=== PATIENT | male | born 1935 | race Two or more races ===

== ENCOUNTER → 2022-03-04 | Outpatient (CLI) | payer MEDICARE, OTHER | END | disposition home or self-care (01) | LOC: Rad HDHVI 15:07 | PROVIDERS: ATTEND Internal Medicine Cardiovascular Disease | DX: R06.02 Shortness of breath (principal) | CPT/HCPCS: 93306 ==

== ENCOUNTER → 2022-03-09 | Outpatient (CLI) | payer MEDICARE, OTHER | END | disposition home or self-care (01) | LOC: Rad HDHVI 13:44 | PROVIDERS: ATTEND Internal Medicine Cardiovascular Disease | DX: I65.23 Occlusion and stenosis of bilateral carotid arteries (principal); I10 Essential (primary) hypertension | CPT/HCPCS: 93880 ==

== ENCOUNTER → 2022-03-13 | Outpatient (CLI) | payer MEDICARE, OTHER ==
[~2022-03-13] VITALS: Ht 177.8 cm; Wt 81.6 kg
[~2022-03-13] MED LIST: ADENOSINE 69 MG in GIVE UN-DILUTED 0 ML IV ONE; ADENOSINE 90 MG/30 ML INJ IV ONE
== END | disposition home or self-care (01) ==
LOC: Rad HDHVI 09:40
PROVIDERS: ATTEND Internal Medicine Cardiovascular Disease
DX: I10 Essential (primary) hypertension (principal); R06.02 Shortness of breath
CPT/HCPCS: 78452; 93005; 96374; 96375; A9500; J0153

== ENCOUNTER → 2023-04-07 | Outpatient (CLI) | payer MEDICARE, OTHER | END | disposition home or self-care (01) | LOC: Rad HDHVI 15:10 | PROVIDERS: ATTEND Internal Medicine Cardiovascular Disease | DX: I65.23 Occlusion and stenosis of bilateral carotid arteries (principal); I11.0 Hypertensive heart disease with heart failure; I50.23 Acute on chronic systolic (congestive) heart failure | CPT/HCPCS: 93880 ==

== ENCOUNTER → 2023-04-27 | Outpatient (CLI) | payer MEDICARE, OTHER ==
[~2023-04-27] VITALS: Ht 175.3 cm; Wt 92.5 kg
[~2023-04-27] MED LIST changes: -ADENOSINE 69 MG in GIVE UN-DILUTED 0 ML IV ONE; +ADENOSINE 78 MG in GIVE UN-DILUTED 0 ML IV ONE
== END | disposition home or self-care (01) ==
LOC: Rad HDHVI 12:53
PROVIDERS: ATTEND Internal Medicine Cardiovascular Disease
DX: I11.0 Hypertensive heart disease with heart failure (principal); I50.23 Acute on chronic systolic (congestive) heart failure; R06.02 Shortness of breath; E78.00 Pure hypercholesterolemia, unspecified; I95.9 Hypotension, unspecified
CPT/HCPCS: 78452; 93005; 96374; 96375; A9500; J0153

== ENCOUNTER → 2024-08-03 | Outpatient (CLI) | payer MEDICARE ==
--- NOTE | 2024-08-03 16:27 | DVH ---
EXAM: CT HEAD WITHOUT CONTRAST HISTORY: ALOC HEADACHES COMPARISON: None TECHNIQUE: Axial images of the head were obtained and reformatted in coronal and sagittal planes. All CT scans at this medical facility are performed using dose modulation techniques as appropriate t o a performed exam including the following: Automated exposure control was utilized; adjustment of th e MA and/or KV according to patient size; and use of iterative reconstruction technique. CT Dose: CTDI volume is 50.22 mGy. Dose-length product is 903.94 mGy*cm FINDINGS: There is moderate age concordant parenchymal volume loss. There are patchy hypodense changes in the supratentorial white matter compatible with chronic small-vessel ischemic changes. 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 There is no evidence of acute intracranial hemorrhage, mass, mass effect midline shift. There is no hydrocephalus or extra-axial fluid collection.. The visualized paranasal sinuses and mastoid air cells are clear. The calvarium is intact. IMPRESSION: 1. No acute intracranial process. HS:Y
--- NOTE | 2024-08-08 12:43 | DVHSR ---
APPROVED REPORT EXAM: Two-dimensional and M-mode echocardiogram with Doppler and color Doppler. DIMENSIONS LVDd3.7 (3.8-5.7cm)LA (2D)3.7 (1.9-4.0cm)Aortic Root2.7 (2.0-3.7cm) LVDs2.8 (2.5-4.0cm)LA (MM) (1.9-4.0cm)Aortic Cusp Exc1.7 (1.5-2.0cm) EF (%) 50.1 (55-70%)Rt. Atrium4.8 (1.9-4.0cm)Asc. Aorta cm IVSd1.1 (0.7-1.1cm)RV (D)4.1 (1.8-2.4cm) PWd1.2 (0.7-1.1cm) Mitral Valve MitralMitral Stenosis E wave0.59m/sMV Mean GR.mmHg A wave1.18m/sMV Peak GR.mmHg E/A ratio0.52D MVAcm2 DECEL [id number] 1/2 Timems Aortic Valve Aortic ValveAortic Stenosis V10.88m/Derek Mean GR.6mmHg V21.50m/Derek Peak GR.9mmHg Pulmonic Valve V20.83m/s Tricuspid Valve [id number] LEFT VENTRICLE The Ejection Fraction is 50-55%. ATRIA The left atrial size is normal. The right atrium is mildly dilated. MITRAL VALVE Mitral annular calcification is mild. There is no mitral valve regurgitation noted. PULMONIC VALVE The pulmonic valve is not well visualized. TRICUSPID VALVE The tricuspid valve is grossly normal. There is trace tricuspid regurgitation. AORTIC VALVE The aortic valve is mildlycalcified. No aortic regurgitation is present. GREAT VESSELS The aortic root is normal size. PERICARDIAL EFFUSION There is no pericardial effusion. Other Information Technically limited study due to body habitus. Conclusion EF 55% MILD MAC MILD AV SCLEROSIS JONATHAN
== END | disposition home or self-care (01) ==
LOC: Rad HDHVI 15:49
PROVIDERS: ATTEND Internal Medicine Cardiovascular Disease
DX: I08.0 Rheumatic disorders of both mitral and aortic valves (principal); I11.9 Hypertensive heart disease without heart failure; I67.89 Other cerebrovascular disease; R05.9 Cough, unspecified; R06.02 Shortness of breath; L98.8 Other specified disorders of the skin and subcutaneous tissue; R42 Dizziness and giddiness
CPT/HCPCS: 70450; 93306

== ENCOUNTER → 2024-09-25 | Outpatient (CLI) | payer MEDICARE ==
[~2024-09-25] MED LIST changes: -ADENOSINE 78 MG in GIVE UN-DILUTED 0 ML IV ONE; -ADENOSINE 90 MG/30 ML INJ IV ONE; +DOXY100C79 PO; +METO-6 PO; +TAMS0.4C39 PO; +TRIA37.587 PO
[2024-09-25 12:15] VITALS: BP 141/67; PULSE 74; RESP 16; O2SAT 95
[2024-09-25 12:40] VITALS: BP 135/69; PULSE 75; RESP 16; O2SAT 95
--- NOTE | 2024-09-25 14:13 | DVH ---
EXAM: XY CHEST TWO VIEWS ROUTINE CLINICAL HISTORY: pain COMPARISON: None TECHNIQUE: Frontal and lateral view of the chest was obtained FINDINGS: Lines and Tubes: None Lungs: No focal consolidation. Calcified nodule in the left upper lung measuring 4 mm suggestive of a calcified granuloma. Pleura: No effusion. No pneumothorax. Cardiomediastinal contours: Cardiomegaly. Atherosclerotic vascular calcifications of the thoracic aor ta are noted. Bones: No acute osseous abnormality. IMPRESSION: No acute cardiopulmonary disease. Cardiomegaly.
== END | disposition home or self-care (01) ==
LOC: Rad HDHVI 12:08
PROVIDERS: ATTEND Internal Medicine Cardiovascular Disease
DX: Z01.818 Encounter for other preprocedural examination (principal); I51.7 Cardiomegaly; R91.1 Solitary pulmonary nodule; I70.0 Atherosclerosis of aorta
CPT/HCPCS: 71046; 93005; G0463

== ENCOUNTER 2024-09-28 08:06 | Day surgery (SDC) | payer MEDICARE ==
[2024-09-25 14:55] LABS: Basophils # (auto) 0.1 10 ^3/uL (0-0.2); Basophils % (auto) 0.9 % (0.0-2.0); Eosinophils # (auto) 0.2 10 ^3/uL (0-0.8); Eosinophils % (auto) 2.7 % (0.0-7.0); Hematocrit 49.2 % (41.0-53.0); Hemoglobin 16.4 g/dL (13.5-17.5); Lymphocytes # (auto) 1.7 10 ^3/uL (0.4-5.4); Lymphocytes % (auto) 23.1 % (10.0-50.0); Mean Corpuscular Hgb Conc. 33.3 g/dL (32.0-36.0); Mean Corpuscular Volume 87.1 fL (80.0-100.0); Monocytes # (auto) 0.6 10 ^3/uL (0-1.3); Monocytes % (auto) 8.1 % (0.0-12.0); Neutrophils # (auto) 4.8 10 ^3/uL (1.6-8.6); Neutrophils % (auto) 65.2 % (37.0-80.0); Nucleated Red Blood Cells % 0.3 %; Platelet Count (auto) 195 10^3/uL (140-450); Red Blood Cells 5.65 10^6/uL (4.5-5.90); Red Cell Distribution Width 17.2 % (11.8-14.3); White Blood Cell 7.4 10^3/uL (4.4-10.8)
[2024-09-25 15:04] LABS: Chloride 103 mmol/L (98-107); Sodium 136 mmol/L (136-145)
[2024-09-25 15:05] LABS: Anion Gap 9 (5-15); Calcium 10.3 mg/dL (8.7-10.4); Carbon Dioxide 24 mmol/L (20-31)
[2024-09-25 15:11] LABS: BUN/Creatinine Ratio 16.9 (10.0-20.0); Blood Urea Nitrogen 22 mg/dL (9-23)
[2024-09-25 15:12] LABS: Partial Thromboplastin Time 26.8 SEC (24.5-34.5); Prothrombin Time 10.6 sec (9.3-11.8)
[2024-09-25 15:13] LABS: Glucose 115 mg/dL (74-106)
[2024-09-28] VITALS (7 sets, daily range): BP systolic 121–147; BP diastolic 70–85; PULSE 72–83; RESP 12–17; TEMP 97.8; O2SAT 91–94
[~2024-09-28] VITALS: Ht 177.8 cm; Wt 82.6 kg
[2024-09-28] MEDS ORDERED: VANCOMYCIN 1GM/250ML KIT 250 ML IV ONE (10:46)
[2024-09-28] MEDS ORDERED: fentaNYL CITRATE 100 MCG/2 ML VL ONE (10:46)
[2024-09-28] MEDS ORDERED: MIDAZOLAM HCL 2MG/2ML 2ml VIAL (1mg/ml) ONE (10:46)
[2024-09-28] MEDS ORDERED: VANCOMYCIN HCL 1000 MG VL ONE (10:46)
[2024-09-28] MEDS ORDERED: LIDOCAINE 2%HCL (LOCAL ANESTH.) INJ 20ML MDV ONE (10:47)
[2024-09-28] MEDS ORDERED: ONDANSETRON HCL 4 MG/2 ML VIAL ONE (12:04)
--- NOTE | 2024-09-28 12:57 | DVHDS ---
DATE OF DISCHARGE: 09/28/2024 DISCHARGE DIAGNOSES: Sick sinus syndrome, bradycardia, tachycardia. HOSPITAL COURSE: For tachybrady episode, the patient underwent successful dual chamber permanent pacemaker implantation Biotronik MRI compatible system. The patient is stable at the time of discharge. DISPOSITION: Home. ACTIVITY: As instructed. DIET: Will be 2 gram sodium diet. The patient is to take all his current medications. Follow up with me in 1 week. Domenic Chacko MD SA/SAIRA TID: [id number] RECEIPT: [id number]
--- NOTE | 2024-09-28 12:59 | DVHOP ---
DATE OF SURGERY: 09/28/2024 PROCEDURES PERFORMED: * Dual-chamber permanent pacemaker implantation. * Venography. * Conscious sedation. DESCRIPTION OF PROCEDURE: The patient was prepped and draped under sterile condition. Xylocaine 1% used to anesthetize the left subclavicular region. Using a Cook needle, left subclavian vein was engaged with Seldinger technique, a guidewire then appropriately positioned. Using a 10 blade, linear incision was made. Using blunt dissection electrocautery, pocket was then dissected out. Using a 9-Bruneian peel-away sheath, right ventricular active fixation lead then appropriately positioned. Threshold parameters obtained. Lead was secured to the chest wall using 0 Ethibond. Using a 7-Bruneian peel-away sheath, right atrial active fixation lead then appropriately positioned. Threshold parameters obtained. Lead was secured to the chest wall using 0 Ethibond. Generator was implanted. Pocket was irrigated using vancomycin and saline solution. Pocket was closed using 0 Monoderm subcutaneous sutures followed by 0 Monoderm subcuticular sutures. There were no complications. The patient tolerated the procedure well. RESULTS: The patient had Biotronik MRI-compatible dual-chamber permanent pacemaker Edora 8 DR-T, model number 052512, serial number [id number]. Ventricular lead is Solia S 53, model number 875299, serial number [id number]. Atrial lead is Solia S 45, model number 346536, serial number [id number]. Threshold parameters: Atrium P-wave amplitude of 5.0 millivolts, threshold 0.7 volts at 0.4 milliseconds, impedance of 720 ohms. Ventricular lead R-wave amplitude of 16.2 millivolts, threshold of 0.9 volts at 0.4 milliseconds pulse duration, pacing impedance of 740 ohms. CONCLUSION: The patient had successful implantation of Biotronik MRI-compatible dual-chamber permanent pacemaker. Domenic Chacko MD SA/HAYLEE TID: [id number] RECEIPT: [id number]
--- NOTE | 2024-09-28 13:07 | DVH ---
EXAM: XY CHEST PORTABLE HISTORY: S/P PACEMAKER COMPARISON: Chest x-ray dated 09/25/2024. TECHNIQUE: Portable upright AP view of the chest was performed. FINDINGS: There is a new left chest pacemaker. Lung volumes are somewhat low. No no pneumothorax or n ew infiltrates. There is stable left basilar opacity partially obscuring the left hemidiaphragm. Ther e is a calcified granuloma in the left mid lung. The heart is enlarged. The aortic arch is calcific. The central pulmonary arteries may be ectatic. IMPRESSION: 1. New left chest pacemaker without evidence of pneumothorax or other complication. 2. Left basilar opacity may be due to scarring, mild infiltrate/ effusion, or artifactual appearance due to left ventricular prominence. 3. Possible pulmonary arterial hypertension.
[2024-09-28] MEDS ORDERED: KETOROLAC TROMETH 30 MG/ML 1ML VIAL ONE (13:39)
[2024-09-28] MEDS: KETOROLAC TROMETH 30 MG/ML 1ML VIAL IM ONE (13:44)
--- NOTE | 2024-09-28 15:53 | ECG ---
[facility] Test Date: 2024-09-28 Test Time: 12:30:48 Pat Name: FLOYD BACH Department: Room: Gender: M Cst: DAMION : 1935 Requested By: FIOR SALMON Order Number: [id number] Reading MD: Mark Gordon Measurements Intervals [place] Rate: 73 P: 23 MI: 154 QRS: 14 QRSD: 80 T: 29 QT: 416 QTc: 458 Interpretive Statements Normal sinus rhythm Possible Inferior infarct , age undetermined Electronically Signed On 09-29-2024 13:38:18 PST by Mark Gordon Please click the below link to view image of tracing.
--- NOTE | 2024-09-28 17:15 | DVHHP ---
ADMIT DATE: 09/28/2024 HISTORY OF PRESENT ILLNESS: The patient who is 89 years old with history of hypertension, history of hyperlipidemia, now presents with signs and symptom complex of marked bradycardia, sick sinus syndrome. He is already on Dyazide diuretic and Toprol because of tachycardia associated with it and now the patient is having marked pauses. Even though he is on a beta myron, if I discontinue the beta myron, the patient develops tachycardia. Therefore, it is felt that the patient requires permanent pacemaker implantation. He also has macular degeneration as well. REVIEW OF SYSTEMS: No previous history of [place]. No history of angioplasty. No history of any CVA or seizure disorder or movement disorder. No history of any chronic lung disease. No COPD. No history of tobacco use. No history of peripheral vascular disease as well. No history of inflammatory bowel disease or rheumatologic disorders. No history of cardiac disease. FAMILY HISTORY: Negative. No diabetes. No renal insufficiency. No liver disease as well. He denies any bleeding diathesis such as hemoptysis, melena, hematochezia, hematuria. PHYSICAL EXAMINATION: VITAL SIGNS: Blood pressure is 134/80, pulse of 80, O2 saturation 98% on room air. HEENT: Pupils are reactive. Funduscopic exam is benign. Sclerae anicteric. Extraocular muscles are intact. Oral mucosa moist. Posterior pharynx without any exudates. NECK: No cervical adenopathy. No supraclavicular adenopathy. Carotid pulses are 2+ symmetrical. No bruits appreciated. No JVD appreciated. Thyroid is within normal limits. PULMONARY: Clear to auscultation. Tympanic to percussion. CARDIOVASCULAR: Regular rate without S3, without S4. PMI is not displaced. ABDOMEN: Obese. Unable to appreciate organomegaly. Stool guaiac is negative. NEUROLOGIC: The patient is intact. DTRs are 2+ symmetrical. Cranial nerves 2 through 12 within normal limits. Sensory and motor modalities are intact. Negative for ataxia. Negative for Babinski. Negative for pronator drift. EXTREMITIES: 1+ pulses bilaterally. ASSESSMENT AND PLAN: Thus, the patient with sick sinus syndrome, marked bradycardia and tachycardia. Therefore, tachybrady episode. The patient is now scheduled to undergo permanent pacemaker implantation. He also has high-grade narrowing of the carotid. I requested he should have a carotid angiography at the same time, but he has refused. He also has significant ischemic changes on stress test. I also recommended left heart catheterization, thus far he has refused. Domenic Chacko MD SA/HENRRY/LOUISE TID: [id number] RECEIPT: [id number]
== END 2024-09-28 14:10 | disposition home or self-care (01) ==
LOC: CATH 08:06
PROVIDERS: ATTEND Internal Medicine Cardiovascular Disease
DX: I44.30 Unspecified atrioventricular block (principal); I25.10 Atherosclerotic heart disease of native coronary artery without angina pectoris; I10 Essential (primary) hypertension
CPT/HCPCS: 33208; 36415; 71045; 80048; 85025; 85610; 85730; 93005; C1785; J1885; J2250; J2405; J3010; J3370; J7030; 99152; 99153

== ENCOUNTER → 2024-09-29 | Outpatient (CLI) | payer MEDICARE ==
--- NOTE | 2024-09-29 13:13 | DVH ---
XY CHEST TWO VIEWS ROUTINE CLINICAL HISTORY: POST OP/ SOB COMPARISON: XY CHEST TWO VIEWS ROUTINE on DOS: 09/25/24 TECHNIQUE: Frontal and lateral view of the chest was obtained FINDINGS: Lines and Tubes: Left sided pacemaker Lungs: No focal consolidation. Pleura: No effusion. No pneumothorax. Cardiomediastinal contours: Unremarkable Bones: No acute osseous abnormality. IMPRESSION: No acute cardiopulmonary disease.
== END | disposition home or self-care (01) ==
LOC: Rad HDHVI 11:09
PROVIDERS: ATTEND Internal Medicine Cardiovascular Disease
DX: Z01.818 Encounter for other preprocedural examination (principal); R06.02 Shortness of breath
CPT/HCPCS: 71046

== ENCOUNTER 2025-01-02 13:12 | Outpatient (CLI) | payer MEDICARE ==
[2025-01-02 13:15] VITALS: BP 152/72; PULSE 81; RESP 20; O2SAT 91
[2025-01-02 13:42] VITALS: BP 151/73; PULSE 80; RESP 20; O2SAT 91
== END 2025-01-02 17:00 | disposition home or self-care (01) ==
LOC: CHF HDHVI 13:12
PROVIDERS: ATTEND Internal Medicine Cardiovascular Disease
DX: Z01.810 Encounter for preprocedural cardiovascular examination (principal); I65.22 Occlusion and stenosis of left carotid artery
CPT/HCPCS: 93005; G0463

== ENCOUNTER 2025-01-18 07:41 | Day surgery (SDC) | payer MEDICARE ==
[2025-01-15 12:12] LABS: Basophils # (auto) 0.1 10 ^3/uL (0-0.2); Basophils % (auto) 0.8 % (0.0-2.0); Eosinophils # (auto) 0.2 10 ^3/uL (0-0.8); Eosinophils % (auto) 2.8 % (0.0-7.0); Hematocrit 46.5 % (41.0-53.0); Lymphocytes # (auto) 2.2 10 ^3/uL (0.4-5.4); Lymphocytes % (auto) 24.9 % (10.0-50.0); Mean Corpuscular Hemoglobin 28.9 pg (28.0-32.0); Mean Corpuscular Hgb Conc. 34.4 g/dL (32.0-36.0); Monocytes # (auto) 0.8 10 ^3/uL (0-1.3); Monocytes % (auto) 8.8 % (0.0-12.0); Neutrophils # (auto) 5.6 10 ^3/uL (1.6-8.6); Neutrophils % (auto) 62.7 % (37.0-80.0); Nucleated Red Blood Cells % 0.1 %; Platelet Count (auto) 205 10^3/uL (140-450); Red Blood Cells 5.54 10^6/uL (4.5-5.90); Red Cell Distribution Width 15.9 % (11.8-14.3)
[2025-01-15 12:25] LABS: INR 1.05 (0.9-1.15); Partial Thromboplastin Time 33.9 SEC (24.5-34.5); Prothrombin Time 11.1 sec (9.3-11.8)
[2025-01-15 12:32] LABS: Anion Gap 10 (5-15); Carbon Dioxide 26 mmol/L (20-31); Chloride 107 mmol/L (98-107); Potassium 4.5 mmol/L (3.5-5.1); Sodium 143 mmol/L (136-145)
[2025-01-15 12:37] LABS: Calcium 10.5 mg/dL (8.7-10.4)
[2025-01-15 12:41] LABS: Blood Urea Nitrogen 28 mg/dL (9-23); Glucose 126 mg/dL (74-106)
[2025-01-18] VITALS (8 sets, daily range): BP systolic 110–131; BP diastolic 58–71; PULSE 65–76; RESP 10–14; TEMP 98.1; O2SAT 93–96
[~2025-01-18] VITALS: Ht 177.8 cm; Wt 85.7 kg
[~2025-01-18 07:41] MED LIST changes: +ASPI-543 PO
[2025-01-18] MEDS: ATROPINE SULF 1 MG/10ml SYR ONE (09:50)
[2025-01-18] MEDS: GLYCOPYRROLATE 0.2 MG/ML 1ML VIAL ONE (09:50)
[2025-01-18] MEDS: fentaNYL CITRATE 100 MCG/2 ML VL ONE (09:50)
[2025-01-18] MEDS: MIDAZOLAM HCL 2MG/2ML 2ml VIAL (1mg/ml) ONE (09:50)
[2025-01-18] MEDS: HEPARIN IN NS 1000Units/500mL 1,500 ML ONE (09:51)
[2025-01-18] MEDS: LIDOCAINE 2%HCL (LOCAL ANESTH.) INJ 20ML MDV ONE (09:51)
[2025-01-18] MEDS: IODIXANOL 320MG/ML 100ML BTL IV ONE (09:51)
--- NOTE | 2025-01-18 10:34 | DVHOP ---
DATE OF SURGERY: 01/18/2025 PROCEDURE PERFORMED: Carotid angiography. DESCRIPTION OF PROCEDURE: The patient was prepped and draped under sterile conditions. Then, 1% Xylocaine was used to anesthetize the right groin. Using a Cook needle, right femoral artery was engaged with Seldinger technique, a 6-Greek sheath in the right femoral artery. Using a 6-Greek JR4 diagnostic catheter, a selective left and right carotid and cerebral angiography was performed. There were no complications. The patient tolerated the procedure well. Right femoral arteriotomy site was then closed using the Angioseal device. RESULTS: * Left and right common carotid without any flow restrictive lesion. * Left and right external carotid artery had no flow restrictive lesion. There is some calcification at the bifurcation point. * Left and right internal carotid artery again mildly calcified, but no flow restrictive lesions were noted. The anatomy was tortuous. * Left and right cerebral angiography shows no deficits as well. CONCLUSION: The patient with mild intimal irregularity of the carotid system as well as the cerebral system; however, no restrictive lesions were noted at this time. So, conservative medical management would be appropriate. Antiplatelet therapy should be considered if he continues to exhibit symptoms of TIA. Domenic Chacko MD SA/SAIRA TID: [id number] RECEIPT: [id number]
--- NOTE | 2025-01-18 10:37 | DVHDS ---
DATE OF DISCHARGE: 01/18/2025 DISCHARGE DIAGNOSES: The patient underwent successful carotid angiography. There was no significant carotid artery disease at this time that requires any intervention, conservative medical management. Stable at the time of discharge. DISPOSITION: Home. ACTIVITY: As instructed. DIET: 2 gram sodium diet. Follow up with me in 1 week. Domenic Chacko MD SA/SAIRA TID: [id number] RECEIPT: [id number]
--- NOTE | 2025-01-18 10:53 | DVHHP ---
ADMIT DATE: 01/18/2025 HISTORY OF PRESENT ILLNESS: The patient is an 89-year-old with TIA-like symptoms. Doppler study shows high-grade narrowing of the left internal carotid artery. The patient is now to undergo carotid angiography to find carotid anatomy. The risks and benefits were explained to the patient. Furthermore, patient's ____ history: History of hypertension, hyperlipidemia, history of sick sinus syndrome status post permanent pacemaker implantation. He denies any fever, chills, melena, or hematochezia. No hematemesis or hemoptysis. No history of myocardial infarction. No history of COPD. No history of tobacco, alcohol, or drug use. Denies any history of recent trauma. No recent travel. Denies any history of connective tissue disease such as rheumatoid arthritis or lupus symptoms. No history of inflammatory bowel disease or irritable bowel syndrome. No liver disease. No kidney disease. No history of any bleeding diathesis like melena, hematochezia, hematemesis, hemoptysis, hematuria. Because of the TIA-like symptoms, it is felt that even though 89, he is at higher risk for carotid endarterectomy; therefore, carotid angiography should be performed first. PHYSICAL EXAMINATION: VITAL SIGNS: Blood pressure is 132/84, pulse 70, O2 saturation 98% on room air. HEENT: Pupils are reactive. Funduscopic exam is benign. Sclerae anicteric. The patient does have macular degeneration by history and also by examination as well. Sclerae and ectatic extraocular muscles are intact. Mucous membranes are moist. Posterior pharynx without an exudates. NECK: No JVD appreciated. No carotid bruits were appreciated. No cervical adenopathy. No supraclavicular adenopathy. Thyroid is within normal limits. PULMONARY: Clear to auscultation. CARDIOVASCULAR: Regularly rated without S3 without S4. PMI is nondisplaced. There is 2/6 systolic murmur along the left sternal border. ABDOMEN: Soft, nontender. Normal bowel sounds. EXTREMITIES: Pulses are 2+ and symmetrical bilaterally. NEUROLOGIC: The patient is intact. EKG does not show any acute changes other than paced rhythm. ASSESSMENT AND PLAN: Thus, the patient with TIA symptoms. Doppler shows high-grade narrowing of the left internal carotid artery. The patient is now to undergo carotid angiography. Further recommendations after the angiogram. Domenic Chacko MD SA/LANG/MICHAEL TID: [id number] RECEIPT: [id number]
== END 2025-01-18 14:49 | disposition home or self-care (01) ==
LOC: CATH 07:41
PROVIDERS: ATTEND Internal Medicine Cardiovascular Disease
DX: I65.22 Occlusion and stenosis of left carotid artery (principal); I10 Essential (primary) hypertension; I49.5 Sick sinus syndrome; E78.5 Hyperlipidemia, unspecified; Z79.82 Long term (current) use of aspirin; Z79.899 Other long term (current) drug therapy; Z95.0 Presence of cardiac pacemaker
CPT/HCPCS: 36222; 36227; 36415; 80048; 85025; 85610; 85730; C1760; C1769; C1894; J1644; J2250; J3010; J7040; Q9967; 99152